=== PATIENT | male | born 1950 | race Caucasian/White ===

== ENCOUNTER 2020-08-08 05:52 | Day surgery (SDC) | payer OTHER ==
[~2020-08-08] VITALS: Ht 170 cm; Wt 70.8 kg
[2020-08-08] MEDS ORDERED: fentaNYL citrate 0.05 MG/ML VIAL ONE (07:27)
[2020-08-08] MEDS ORDERED: diphenhydrAMINE 50 MG/ML VIAL ONE (07:27)
[2020-08-08] MEDS ORDERED: MIDAZOLAM 5 MG/5 ML VIAL ONE (07:28)
[2020-08-08] MEDS ORDERED: fentaNYL citrate 0.05 MG/ML VIAL IVP ONE (11:00)
[2020-08-08] MEDS ORDERED: MIDAZOLAM 2 MG/2 ML VIAL IVP ONE (11:00)
== END 2020-08-08 09:05 | disposition home or self-care (01) ==
LOC: MDS 05:52 → MMU 06:03 → MDS 09:05
PROVIDERS: ATTEND Internal Medicine Gastroenterology
DX: R13.10 Dysphagia, unspecified (principal); K29.70 Gastritis, unspecified, without bleeding; K21.9 Gastro-esophageal reflux disease without esophagitis; I10 Essential (primary) hypertension; E78.00 Pure hypercholesterolemia, unspecified; Z79.899 Other long term (current) drug therapy; Z95.1 Presence of aortocoronary bypass graft
CPT/HCPCS: 43239; J2250; J3010; J1200